=== PATIENT | female | born 1970 | race Caucasian/White ===

== ENCOUNTER → 2017-06-13 | Outpatient (CLI) | payer BC, OTHER ==
[~2017-06-13] MED LIST: IBUPROFEN 800800 M1 PO; MINOCIN100 MG PO; TOPAMAX50 MG PO
== END ==
LOC: RAD 06-05 11:08
DX: Z12.31 Encounter for screening mammogram for malignant neoplasm of breast (principal); N60.01 Solitary cyst of right breast; N60.02 Solitary cyst of left breast

== ENCOUNTER → 2018-01-30 | Outpatient (CLI) | payer BC, OTHER | LOC: RAD 08:42 | DX: R92.1 Mammographic calcification found on diagnostic imaging of breast (principal) ==

== ENCOUNTER → 2019-04-22 | Outpatient (CLI) | payer OTHER, BC | LOC: RAD 01:38 | DX: Z12.31 Encounter for screening mammogram for malignant neoplasm of breast (principal) ==

== ENCOUNTER → 2019-05-01 | Outpatient (CLI) | payer OTHER, BC | LOC: ULTRA 04:20 | DX: N60.01 Solitary cyst of right breast (principal); N63.21 Unspecified lump in the left breast, upper outer quadrant ==

== ENCOUNTER → 2019-05-14 | Outpatient (CLI) | payer OTHER, BC | END | disposition home or self-care (01) | LOC: ULTRA 10:29 | DX: N60.02 Solitary cyst of left breast (principal); Z98.890 Other specified postprocedural states; Z79.899 Other long term (current) drug therapy ==